=== PATIENT | female | born 1940 | race Caucasian/White ===

== ENCOUNTER → 2017-11-01 | Outpatient (CLI) | payer OTHER, MEDICARE | LOC: BMCIMAGING 10:49 | PROVIDERS: ATTEND Orthopaedic Surgery | DX: M17.12 Unilateral primary osteoarthritis, left knee (principal); M11.262 Other chondrocalcinosis, left knee; M76.52 Patellar tendinitis, left knee ==

== ENCOUNTER → 2018-02-15 | Outpatient (CLI) | payer OTHER, MEDICARE | LOC: FIMAGING 09:43 | PROVIDERS: ATTEND Orthopaedic Surgery | DX: Z01.818 Encounter for other preprocedural examination (principal); M17.12 Unilateral primary osteoarthritis, left knee ==

== ENCOUNTER 2018-02-26 05:04 | Inpatient (IN) | payer OTHER, MEDICARE ==
[2018-02-26] MEDS ORDERED: ceFAZolin 2 GM/DEXTROSE 100 ML IV ONE (05:52)
[2018-02-26] MEDS ORDERED: FAMOTIDINE 20 MG TAB PO ONE (05:52)
[2018-02-26] MEDS ORDERED: ACETAMINOPHEN 325 MG TAB PO ONE (05:52)
[2018-02-26] MEDS ORDERED: TRANEXAMIC ACID 1,000 MG in NS 100 ML IV ONE (06:00)
[2018-02-26] MEDS ORDERED: ROPIVACAINE 0.2% 80 MG, EPINEPHrine 0.2 MG, KETOROLAC TROMETHAMINE 30 MG, morphINE 10 M... IU ONE (06:00)
[2018-02-26] MEDS ORDERED: LIDOCAINE 1% 2 ML INJ ID PRN (06:04)
[2018-02-26] MEDS ORDERED: LR 1,000 ML IV ONE (06:04)
--- NOTE | 2018-02-26 06:06 | PDHPUP ---
History & Physical Update H&P update statement: This history and physical update is based on an assessment of the patient which was completed after admission or registration (within 24 hours), but prior to the surgery/procedure. H&P update: no change in patient's condition since H&P completed
--- NOTE | 2018-02-26 06:07 | PDIAF ---
- Diagnosis Diagnosis: left knee djd Code Status: Full Code - Medication Management Discharge Medications: Medications to Continue on Transfer Sodium Cl Nasal [[place] (*)] 1 spray NS DAILY 02/13/18 [Last Taken Unknown] Discharge Medications: Refer to the Discharge Home Medication list for PRN reason. - Orders Services needed: Home Care, Physical Therapy Home Care Face to Face: I certify that this patient was under my care and that I had the required [id number]-[id number] encounter meeting the encounter requirements on the discharge day. My findings support the fact that the patient is homebound as defined in Home Care Face to Face Continued: CMS Chapter 7 Medicare Benefits Manual 30.1.1 , The condition of the patient is such that there exists a normal inability to leave home and consequently, leaving home would require a considerable and taxing effort. Diet Recommendation: no restrictions on diet Diet Texture: Regular Texture Diet Additional Instructions: TOTAL JOINT ARTHROPLASTY DISCHARGE INSTRUCTIONS 1. Your surgeon follows the [facility] protocol for reducing your risk of DVT (blood clots) following surgery. Medication will be ordered to prevent blood clots. A sudden increase in calf pain and/or swelling could indicate a blood clot in your leg. If this occurs, please call your surgeon or his/her human resources assistant. An ultrasound of the leg may be necessary to diagnose a blood clot. If you have conditions that make you a higher risk for blood clots, your surgeon may use more aggressive ways to prevent them. Notify your surgeon if you think you are a high risk for blood clots. 2. Wear your white surgical stockings (SANG hose) for 2 weeks. This decreases your swelling and may help prevent blood clots. It is ok to remove SANG hose at night time to give your legs a break. 3. Swelling and bruising in the surgical leg is common. If you feel that it is excessive, please notify your surgeon. 4. Elevate your surgical leg with the ankle above the hip several times every day. Please keep the leg straight when you elevate by putting pillows under your foot. Do not put pillows under your knee. This will make being able to fully straighten more difficult. This is uncomfortable, but try to do it as much as possible. 5. For total knee replacements use compressive wrap on your knee for 3-5 days after surgery, then you can discontinue it. 6. Use a walker or crutches for 1-2 weeks. Progress your weight-bearing as tolerated. You may start to use a cane when you feel stable and safe. 7. You will receive physical therapy instructions in the hospital. Continue those exercises at home. There are additional exercises in the total joint booklet you were given before surgery. Outpatient physical therapy will begin 7- 10 days after surgery. Please schedule this in advance. 8. Use ice on your knee at least 3-5 times every day for 30 minutes. This helps reduce pain and swelling. Also use it at night before falling asleep. 9. Leave your surgical dressing in place for 2 weeks. Your dressing is water resistant, but not waterproof. Cover it with Saran Wrap or Adhel-w-Avmr before showering. You may shower as soon as you feel safe entering a shower. If you notice bleeding from your incision 2 or 3 days after surgery, please notify your surgeon. 10. Due to narcotics, decreased activity and altered diet, most patients experience constipation after surgery. Use omag-vmi-rvhcqgz stool softeners while you are on narcotics. 11. You may drive a car when you are comfortable bearing weight, have good muscular control of your leg and are off narcotics. This usually occurs 2-4 weeks after surgery, depending on which leg was operated on. 12. If there are questions not addressed here, please refer the [facility] book given for more information. If you still have questions, please contact your surgeon s office. 13. If you have a life-threatening emergency, please call 911 and go to the emergency room immediately. For non-life threatening emergencies, please call your physicians office for advice before going to the emergency room. - Follow Up Care Current Providers and Referrals: Fabricio Graham MD [Primary Care Provider] - Sanjeev Peres MD [Medical Doctor] -
[2018-02-26] MEDS ORDERED: THROMBIN (BOVINE) 5,000 UNIT VIAL TP ONE (06:25)
[2018-02-26] MEDS ORDERED: CALCIUM CHLORIDE 1 GM/10 ML INJ ONE (06:25)
[2018-02-26] MEDS ORDERED: ceFAZolin 1 GM/5 ML SYR ONE (06:26)
[2018-02-26] MEDS ORDERED: PROPOFOL 200 MG/20 ML VIAL ONE (07:04)
[2018-02-26] MEDS ORDERED: BUPIVACAINE/DEXTROSE 7.5MG/ML 2 ML SPINAL AMP SP ONE (07:04)
[2018-02-26] MEDS ORDERED: fentaNYL 100 MCG/2 ML INJ ONE ×2 (07:38→08:51)
[2018-02-26] MEDS ORDERED: SUGAMMADEX SODIUM 200 MG/2 ML VIAL IVP ONE (07:40)
[2018-02-26] MEDS ORDERED: ONDANSETRON 4 MG/2 ML VIAL ONE ×2 (07:40→09:07)
[2018-02-26] MEDS ORDERED: ROCURONIUM 50 MG/5 ML VIAL ONE (07:40)
[2018-02-26] MEDS ORDERED: LR 500 ML IV PRN (07:58)
[2018-02-26] MEDS ORDERED: ALBUTEROL 3 ML DEYVIAL IH PRN (07:58)
[2018-02-26] MEDS ORDERED: ONDANSETRON 4 MG/2 ML VIAL IVP PRN ×2 (07:58→08:23)
[2018-02-26] MEDS ORDERED: DEXAMETHASONE 4 MG/ML VIAL IVP PRN (07:58)
[2018-02-26] MEDS ORDERED: NALOXONE HCL 0.4 MG/ML INJ IVP PRN (07:58)
--- NOTE | 2018-02-26 07:58 | PDANEPAE ---
ANE Past Medical History - Cardiovascular History Hx Hypertension: No Hx Arrhythmias: No Hx Chest Pain: No Hx Coronary Artery / Peripheral Vascular Disease: No Hx CHF / Valvular Disease: No Hx Palpitations: Yes Cardiovascular History Comment: hx of some palpatations r/t nervous system virus that resolved - Pulmonary History Hx COPD: No Hx Asthma/Reactive Airway Disease: No Hx Recent Upper Respiratory Infection: No Hx Oxygen in Use at Home: No Hx Sleep Apnea: No Sleep Apnea Screening Result - Last Documented: Negative - Neurologic History Hx Cerebrovascular Accident: No Hx Seizures: No Hx Dementia: No - Endocrine History Hx Diabetes: No - Renal History Hx Renal Disorders: No - Liver History Hx Hepatic Disorders: No - Neurological & Psychiatric Hx Hx Neurological and Psychiatric Disorders: No - Cancer History Hx Cancer: No - Congenital Disorder History Hx Congenital Disorders: No - GI History Hx Gastrointestinal Disorders: No - Other Health History Other Health History: sinusitis. wears glasses. occasional red sploches on extremities since cortisone shot in knee - Chronic Pain History Chronic Pain: No - Surgical History Prior Surgeries: surgery to left knee after ski injury. bilateral cataract surgery ANE Review of Systems Review of Systems: - Exercise capacity METS (RN): 4 METS ANE Patient History - Allergies Allergies/Adverse Reactions: No Known Allergies Allergy (Verified 02/20/18 10:31) - Home Medications Home Medications: Sodium Cl Nasal [[place] (*)] 1 spray NS DAILY 02/13/18 [Last Taken 02/23/18 ] - NPO status NPO Since - Liquids (Date): 02/26/18 NPO Since - Liquids (Time): 03:45 NPO Since - Solids (Date): 02/25/18 NPO Since - Solids (Time): 20:00 - Smoking Hx Smoking Status: Never smoked - Family Anes Hx Family Hx Anesthesia Complications: none ANE Labs/Vital Signs - Vital Signs Blood Pressure: 148/69 Heart Rate: 63 Respiratory Rate: 17 O2 Sat (%): 98 Height: 162.56 cm Weight: 54.885 kg ANE Physical Exam - Airway Neck exam: FROM Mallampati Score: Class 1 Mouth exam: normal dental/mouth exam - Pulmonary Pulmonary: no respiratory distress, no rales or rhonchi, clear to auscultation - Cardiovascular Cardiovascular: regular rate and rhythym, no murmur, rub, or gallop - ASA Status ASA Status: II ANE Anesthesia Plan Anesthesia Plan: spinal Regional Anesthesia: single shot NB, adductor canal FNB
[2018-02-26] MEDS ORDERED: ROPIVACAINE HCL 150 MG/30 ML INJ ONE (08:10)
[2018-02-26] MEDS ORDERED: LACTULOSE 20 GM/30 ML UDCUP PO PRN (08:23)
[2018-02-26] MEDS ORDERED: diphenhydrAMINE 25 MG CAP PO PRN (08:23)
[2018-02-26] MEDS ORDERED: ONDANSETRON DISINTEGRATING 4 MG TAB PO PRN (08:23)
[2018-02-26] MEDS ORDERED: DIPHENOXYLATE/ATROPINE LOMOTIL 1 TAB PO PRN (08:23)
[2018-02-26] MEDS ORDERED: METOCLOPRAMIDE 10 MG/2 ML VIAL IVP PRN (08:23)
[2018-02-26] MEDS ORDERED: traMADol 50 MG TAB PO PRN (08:23)
[2018-02-26] MEDS ORDERED: POLYETHYLENE GLYCOL 3350 17 GM PKT PO PRN (08:23)
[2018-02-26] MEDS ORDERED: PROMETHAZINE HCL 25 MG SUPPR PR PRN (08:23)
[2018-02-26] MEDS ORDERED: CYCLOBENZAPRINE 10 MG TAB PO PRN (08:23)
[2018-02-26] MEDS ORDERED: PROMETHAZINE HCL 25 MG/ML INJ IVP PRN (08:23)
[2018-02-26] MEDS ORDERED: TEMAZEPAM 15 MG CAP PO PRN (08:23)
[2018-02-26] MEDS ORDERED: BISACODYL 10 MG SUPP PR PRN (08:23)
[2018-02-26] MEDS ORDERED: MAGNESIUM HYDROXIDE 30 ML UDCUP PO PRN (08:23)
--- NOTE | 2018-02-26 08:25 | POSTOPPROG ---
Post Op Note Date of Operation: 02/26/18 Surgeon: Sanjeev Peres Research Assistant Professor: ghulam Anesthesiologist: gualberto Anesthesia: GET(General Endotracheal), Spinal Pre-op Diagnosis: left knee djd Post-op Diagnosis: same Indication: same Procedure: left tka Inf/Abcess present in the surg proc area at time of surgery?: No Depth: Deep Incisional (Fascial) EBL: 50-100
[2018-02-26] MEDS ORDERED: LR 1,000 ML IV SCH (08:30)
[2018-02-26] MEDS: fentaNYL 100 MCG/2 ML INJ IVP PRN ×3 (08:55→09:24)
[2018-02-26] MEDS ORDERED: PROMETHAZINE HCL 25 MG/ML INJ ONE (09:15)
--- NOTE | 2018-02-26 09:46 | POSTANESTH ---
Post Anesthetic Evaluation Cardiovascular Status: Normal, Stable, Similar to Pre-Op Cond Respiratory Status: Normal, Stable, Similar to Pre-op Cond. Level of Consciousness/Mental Status: Can Participate in Eval Pain Control: Adequate, Prn Tx Ordered Nausea/Vomiting Control: Adequate, Prn Tx Ordered Complications Possibly Related to Anesthesia: None Noted
[2018-02-26] MEDS: SODIUM CL NASAL 45 ML BTL NS SCH (09:51)
[2018-02-26] MEDS: SENNOSIDES/DOCUSATE SODIUM TAB PO SCH ×2 (09:51→22:12)
[2018-02-26] MEDS: ACETAMINOPHEN 325 MG TAB PO SCH ×3 (12:00→23:36)
--- NOTE | 2018-02-26 12:53 | PDMN ---
Medical Necessity Medical necessity: . [facility] S700 Knee Arthroplasty, Total, CPT 63657, 78 y/o s/p L TKA, anticipate >2MN recovery given advanced pt age, PT/OT consults. Hx cardiac palpitations.
[2018-02-26] MEDS: TRANEXAMIC ACID 650 MG TAB PO SCH ×2 (14:24→22:12)
[2018-02-26] MEDS: ceFAZolin 2 GM/DEXTROSE 100 ML IV SCH ×2 (14:25→22:12)
[2018-02-26] MEDS: oxyCODONE IR 5 MG TAB PO PRN (17:05)
[2018-02-26] MEDS: FAMOTIDINE 20 MG TAB PO SCH (22:12)
[2018-02-26] MEDS: ASPIRIN 325 MG TAB PO SCH (22:19)
[2018-02-27] MEDS: ACETAMINOPHEN 325 MG TAB PO SCH (05:47)
[2018-02-27] MEDS: TRANEXAMIC ACID 650 MG TAB PO SCH (05:47)
--- NOTE | 2018-02-27 07:20 | PDIAF ---
- Diagnosis Diagnosis: left knee djd Code Status: Full Code - Medication Management Discharge Medications: Medications to Continue on Transfer Sodium Cl Nasal [[place] (*)] 1 spray NS DAILY 02/13/18 [Last Taken 02/23/18 ] Aspirin [Aspirin 325 mg (*)] 325 mg PO DAILY tab 02/27/18 [Last Taken Unknown] oxyCODONE IR [Oxycodone [place] (*)] 5 - 10 mg PO Q3HRS PRN #40 tab 02/27/18 [Last Taken Unknown] Discharge Medications: Refer to the Discharge Home Medication list for PRN reason. - Orders Services needed: Home Care, Physical Therapy Home Care Face to Face: I certify that this patient was under my care and that I had the required [id number]-[id number] encounter meeting the encounter requirements on the discharge day. My findings support the fact that the patient is homebound as defined in Home Care Face to Face Continued: CMS Chapter 7 Medicare Benefits Manual 30.1.1 , The condition of the patient is such that there exists a normal inability to leave home and consequently, leaving home would require a considerable and taxing effort. Diet Recommendation: no restrictions on diet Diet Texture: Regular Texture Diet Additional Instructions: TOTAL JOINT ARTHROPLASTY DISCHARGE INSTRUCTIONS 1. Your surgeon follows the [facility] protocol for reducing your risk of DVT (blood clots) following surgery. Medication will be ordered to prevent blood clots. A sudden increase in calf pain and/or swelling could indicate a blood clot in your leg. If this occurs, please call your surgeon or his/her assistant food service director. An ultrasound of the leg may be necessary to diagnose a blood clot. If you have conditions that make you a higher risk for blood clots, your surgeon may use more aggressive ways to prevent them. Notify your surgeon if you think you are a high risk for blood clots. 2. Wear your white surgical stockings (SANG hose) for 2 weeks. This decreases your swelling and may help prevent blood clots. It is ok to remove SANG hose at night time to give your legs a break. 3. Swelling and bruising in the surgical leg is common. If you feel that it is excessive, please notify your surgeon. 4. Elevate your surgical leg with the ankle above the hip several times every day. Please keep the leg straight when you elevate by putting pillows under your foot. Do not put pillows under your knee. This will make being able to fully straighten more difficult. This is uncomfortable, but try to do it as much as possible. 5. For total knee replacements use compressive wrap on your knee for 3-5 days after surgery, then you can discontinue it. 6. Use a walker or crutches for 1-2 weeks. Progress your weight-bearing as tolerated. You may start to use a cane when you feel stable and safe. 7. You will receive physical therapy instructions in the hospital. Continue those exercises at home. There are additional exercises in the total joint booklet you were given before surgery. Outpatient physical therapy will begin 7- 10 days after surgery. Please schedule this in advance. 8. Use ice on your knee at least 3-5 times every day for 30 minutes. This helps reduce pain and swelling. Also use it at night before falling asleep. 9. Leave your surgical dressing in place for 2 weeks. Your dressing is water resistant, but not waterproof. Cover it with Saran Wrap or Cwkko-b-Cqam before showering. You may shower as soon as you feel safe entering a shower. If you notice bleeding from your incision 2 or 3 days after surgery, please notify your surgeon. 10. Due to narcotics, decreased activity and altered diet, most patients experience constipation after surgery. Use khjn-qpt-lsoqbjh stool softeners while you are on narcotics. 11. You may drive a car when you are comfortable bearing weight, have good muscular control of your leg and are off narcotics. This usually occurs 2-4 weeks after surgery, depending on which leg was operated on. 12. If there are questions not addressed here, please refer the [facility] book given for more information. If you still have questions, please contact your surgeon s office. 13. If you have a life-threatening emergency, please call 911 and go to the emergency room immediately. For non-life threatening emergencies, please call your physicians office for advice before going to the emergency room. - Follow Up Care Current Providers and Referrals: Fabricio Graham MD [Primary Care Provider] - Sanjeev Peres MD [Medical Doctor] -
--- NOTE | 2018-02-27 07:21 | SOAPPROG ---
SOAP Progress Note Assessment/Plan: Assessment: s/p left tka Plan:stable dc home home pt dvt precautions 02/27/18 07:20 Subjective: no co no cp or sob Objective: Vital Signs Temp Pulse Resp BP Pulse Ox 36.8 C 54 L 16 121/65 H 95 02/27/18 04:00 02/27/18 04:00 02/27/18 04:00 02/27/18 04:00 02/27/18 04:00 Laboratory Results 02/27/18 04:45 02/26/18 02/27/18 02/28/18 05:59 05:59 05:59 Intake Total 2625 Output Total 3005 Balance -380 dressing intact intact pf,df,ehl toes warm and pink neg homans celina xrays stable alignement no fx or lucency ICD10 Worksheet Patient Problems: Problems Problem Status Onset Arthritis of knee Acute - ICD10 Problem Qualifiers (1) Arthritis of knee
[2018-02-27 07:37] VITALS: BP 112/65
[2018-02-27] MEDS: SENNOSIDES/DOCUSATE SODIUM TAB PO SCH (09:39)
[2018-02-27] MEDS: ASPIRIN 325 MG TAB PO SCH (09:39)
[2018-02-27] MEDS: FAMOTIDINE 20 MG TAB PO SCH (09:40)
[2018-02-27] MEDS: SODIUM CL NASAL 45 ML BTL NS SCH (09:41)
[2018-02-27] MEDS: oxyCODONE IR 5 MG TAB PO PRN (09:47)
--- NOTE | 2018-02-27 12:11 | ASMTLACE ---
LUZMARIA Length of stay for Answers: 2 days current admission Acuity / Level of Answers: Yes Care: Did the patient have an inpatient admission? # of Emergency department Answers: 0 visits in the last 6 months Score: 5 Date Signed: 02/27/2018 12:10 PM Electronically Signed By:JADEN Burr
--- NOTE | 2018-02-27 14:05 | ASMTCMCOM ---
CM Note CM Note Notes: Pt s/p OA of knee. Pt resides with spouse PT rec home/HHC. Pt medically stable for d/c with [facility]. [facility] could not staff. Pt address/phone verified. Date Signed: 02/27/2018 02:04 PM Electronically Signed By:JADEN Burr
--- NOTE | 2018-02-27 14:05 | ASDISCHSUM ---
Discharge Information Plan Status:Home with Home Health Medically Cleared to Leave: Discharge Date:02/27/2018 11:56 AM CM D/C Disposition:Home Health Service ADT D/C Disposition:Home Health Service Projected Discharge Date:02/27/2018 11:00 AM Transportation at D/C: Discharge Delay Reason: Follow-Up Date:02/27/2018 11:00 AM Discharge Slot: Final Diagnosis: Placement Information Referral Type:*Home Health Care Services Referral ID:[id number] Provider Name:[facility] Address 1:[address] [address] Address 2: City:[place] Selection Factors: State:[place] Patient Contact Information Contact Name:MIN Relationship: Address:[address] City:[facility] Phone: State/Zip Code:[place] [address] Email: Financial Information Financial Class:Medicare Primary Plan Desc:MEDICARE INPATIENT Primary Plan Number:[id number] Secondary Plan Desc:[employer]/MDR SUPPLEMENT Secondary Plan Number:[id number] Assessment Information LACE LACE Length of stay for Answers: 2 days current admission Acuity / Level of Answers: Yes Care: Did the patient have an inpatient admission? # of Emergency department Answers: 0 visits in the last 6 months Score: 5 Date Signed: 02/27/2018 12:10 PM Electronically Signed By:JADEN Burr [facility] Progress Note CM Note CM Note Notes: Pt s/p OA of knee. Pt resides with spouse PT rec home/HHC. Pt medically stable for d/c with [facility]. [facility] could not staff. Pt address/phone verified. Date Signed: 02/27/2018 02:04 PM Electronically Signed By:JADEN Burr Intervention Information
--- NOTE | 2018-03-06 15:22 | GOP ---
DATE OF OPERATION: 02/26/2018 SURGEON: Sanjeev Peres MD CRITICAL SYSTEMS TECHNICIAN: Micky Lemon, PERCUSSION TUNER, [facility], who was medical necessity for the entirety of the case. PREOPERATIVE DIAGNOSIS: Left knee degenerative joint disease. POSTOPERATIVE DIAGNOSIS: Left knee degenerative joint disease. PROCEDURE PERFORMED: Left total knee arthroplasty. FINDINGS: SPECIMENS: None. INDICATIONS: This is an 78-year-old woman who has end-stage arthritis to her left knee. Clinical an d radiographic features are consistent with this. She has failed all attempts at conservative manage ment. I have, therefore, recommended operative intervention. I have outlined the surgical procedure , risks, benefits, and alternatives. She wished to proceed. Written consent was signed and placed i n the patient's chart. DESCRIPTION OF PROCEDURE: The patient was identified in the preanesthesia area. The left knee was c learly demarcated as the operative site with indelible marker. She was given 2 g of Ancef intravenou sly en route to the operative suite. In the OR spinal anesthetic was placed followed by sedation. S he was positioned in the supine position. Attention was turned to the left lower extremity. Tourniq uet was applied to the upper thigh. The limb was then sterilely prepped and draped in usual fashion. Appropriate time-out procedure was carried out. The limb was exsanguinated with an Esmarch bandage . Tourniquet inflated to 275 mmHg. Standard anterior midline incision was made. Thick subcutaneous flaps were elevated, followed by medial parapatellar arthrotomy. Subperiosteal elevation was misty d out to the mid coronal plane. The knee demonstrated tricompartmental arthritis. Decision was made to proceed with total knee replacement. Two pins were then placed from the medial to lateral aspect of the femur and percutaneously across the distal tibia. The femoral and tibial reference arrays we re affixed. The femoral tibial check points were placed. The bony landmarks were entered in the com puter in standard fashion. The knee was balanced through the flexion-extension arc. Using the [employer] robot, resections were made for a size 4 femur, size 4 tibia, and trial components were then pl aced. A 4 x 11 mm polyethylene spacer was ultimately selected and allowed full extension, flexion to 130 degrees and no instability to varus or valgus stress through the flexion-extension arc. The tri al components were withdrawn. The bony surfaces thoroughly cleansed and dried, and the tibia and fem oral components placed in a press-fit technique. A 4 x 11 mm thick polyethylene spacer was placed an d confirmed to be fully seated. The knee was brought through flexion extension arc as previous. The re was no instability with varus or valgus stress and full extension was achieved. The patella was e verted, cut in a freehand cutting technique and drill holes were then made for 32 mm size patella. A press-fit patella was placed. The knee cap tracked centrally through the flexion-extension arc. Th e wound was copiously irrigated. The capsule and tissues injected with a joint cocktail of ropivacai ne, morphine, Toradol, and epinephrine. The medial parapatellar arthrotomy closed using #1 Ethibond suture. The knee instilled with platelet-rich plasma. Subcutaneous tissue closed using 2-0 Monocryl and the skin with a zip line closure followed by sterile overlying dressing. The patient was awaken ed, extubated, taken to recovery room in good and stable condition. TOTAL TOURNIQUET TIME: 55 minutes. COMPLICATIONS: None. IMPLANTS: [place] femur posterior stabilized, size 4, size 4 tibia, 4 x 11 mm X3 tibial be aring insert, and a 32 mm asymmetric patella. DISPOSITION: To the recovery room, then the floor. She is weightbearing, range of motion as tolerat ed. /[id number]/MODL
--- NOTE | 2018-03-06 15:32 | GDS ---
ADMISSION DIAGNOSIS: Left knee degenerative joint disease. DISCHARGE DIAGNOSIS: Left knee degenerative joint disease. PROCEDURE: Left total knee arthroplasty. HISTORY OF PRESENT ILLNESS: This is an 78-year-old woman who presents today for elective left total knee replacement. She understands the risks, benefits, alternatives, and wished to proceed. HOSPITAL COURSE: The patient was admitted to the hospital floor after uncomplicated total knee arthr oplasty. She tolerated the procedure well. Postoperatively, she had no complications. At the time of discharge, she is tolerating an oral diet. Pain is well controlled on oral medicines. She is voi ding without difficulty. Dressing is clean, dry, and intact. There are no Homans bilaterally. X-ra ys are stable with anatomic alignment. DISCHARGE ACTIVITY: Weightbearing, range of motion as tolerated. May shower with the dressing intac t, follow-up in 2 weeks. Seek attention for increasing redness, swelling, drainage or discharge. DISCHARGE MEDICATIONS: Oxycodone 5 mg 1-2 every 6 hours p.r.n. pain and aspirin 325 mg p.o. daily fo r 6 weeks. /[id number]/MODL
== END 2018-02-27 11:56 | disposition home health service (06) | DRG 470 ==
LOC: F3N 05:04
PROVIDERS: ADMIT Orthopaedic Surgery; ATTEND Orthopaedic Surgery
DX: M17.12 Unilateral primary osteoarthritis, left knee (principal)
CPT/HCPCS: 97110-GP; 97116-GP; 97161-GP; 97165-GO; 97530-GP; G8978-GP-CK; G8979-GP-CJ; G8980-GP-CI; G8987-GO-CI; G8988-GO-CI; G8989-GO-CI; J0171; J0690; J1885; J2270; J2405; J2550; J2704; J2795; J3010

== ENCOUNTER → 2018-07-23 | Outpatient (CLI) | payer OTHER, MEDICARE | LOC: BMCIMAGING 09:49 | PROVIDERS: ATTEND Physician Assistant | DX: Z96.652 Presence of left artificial knee joint (principal); M25.462 Effusion, left knee ==